=== PATIENT | female | born 1985 | race Caucasian/White ===

== ENCOUNTER 2016-11-01 15:17 | Emergency (ER) | payer MEDICAID, OTHER ==
[2016-11-01] MEDS ORDERED: KETOROLAC TROMETHAMINE 60 MG/2 ML VIAL IM ONE ×2 (16:17→16:37)
[2016-11-01 16:30] LABS: Hematocrit 38.5 % (37.0-47.0); Hemoglobin 12.7 gm/dL (12.5-16.0); Mean Cell Volume 86.5 fl (78-100); Mean Corpuscular Hemoglobin 28.5 pg (27-31); Mean Platelet Volume 10.5 fl (6.0-9.5); Neutrophil # 5.7 K/mm3 (1.3-6.0); Neutrophil % 65.3 % (42-75.0); Platelet Count 310 K/mm3 (150-450); Red Blood Count 4.45 M/mm3 (4.2-5.4); Red Cell Distribution Width 12.7 % (11.5-14.0); White Blood Count 8.7 K/mm3 (4.0-10.5)
[2016-11-01 16:44] LABS: Albumin * 3.6 gm/dl (3.4-5.0); Anion Gap 11.5 mmol/L (6.8-13.8); BUN/Creatinine Ratio 14.7 (9.0-21.6); Bilirubin, Total 0.3 mg/dL (0.0-1.1); CRP 2.3 mg/dL (0.0-0.9); Ca. Corrected For Albumin 9.1 mg/dL (8.4-10.2); Calcium * 9.1 mg/dL (7.9-10.9); Carbon Dioxide 30.5 mmol/L (24-32.6)
[2016-11-01 16:56] LABS: Urine Bilirubin Negative (NEGATIVE); Urine Blood Negative /ul (NEGATIVE); Urine Ketone Negative (NEGATIVE); Urine Nitrite Negative (NEGATIVE); Urine Protein Negative (NEGATIVE); Urine Specific Gravity 1.025 SP.GR. (1.005-1.010); Urine Urobilinogen Normal (NORMAL); Urine pH 6.5 pH (5.0-7.0)
--- NOTE | 2016-11-01 16:56 | ERNOTE ---
ER Female HPI Date of Service: 11/01/16 Stated Complaint: OVARIAN CYSTS Presenting Symptoms: pelvic pain Time Seen by Provider: 11/01/16 16:08 Source: patient, RN notes reviewed Exam Limitations: no limitations Immunizations: IMMUNIZATION HX Immunizations Up to Date Yes History of Influenza Vaccine No Hx Pneumococcal Vaccination No Allergies/Adverse Reactions: Allergies acetaminophen [From Vicodin] Allergy (Intermediate, Verified 11/01/16 15:34) itchy codeine [Codeine] Allergy (Verified 11/01/16 15:34) hydrocodone bitartrate [From Vicodin] Allergy (Verified 11/01/16 15:34) Sulfa (Sulfonamide Antibiotics) [Sulfa(Sulfonamide Antibiotics)] Allergy ( Verified 11/01/16 15:34) Home Medications: HOME MEDICATIONS HYDROmorphone HCL [Dilaudid] 2 mg PO Q6H PRN #12 tablet 11/01/16 [Last Taken Unknown] Ibuprofen [Motrin] 600 mg PO Q6H PRN #40 tab 11/01/16 [Last Taken Unknown] - History of Present Illness Narrative: 31 y/o female ambulatory to ED with left sided pelvic pain that began 4 days ago. She has had ovarian cysts in the past and reports that the pain is similar. She has been taking ibuprofen for pain without improvement. Her pain is worse with urination and defecation. She has had nausea but no vomiting or diarrhea. She denies fevers. Her LMP was 10/09/16. She has been on hormonal contraceptives in the past and tolerated them poorly. Timing: Present: getting worse Quality: Present: aching Onset Location: Present: LLQ, groin Radiation: Present: left flank Activities at Onset: Present: none Prior Abdominal Problems: Present: similar symptoms Sexual [place] History: Present: single partner Associated Symptoms: Present: nausea, abdominal pain, urinary frequency, low back pain. Absent: fever/chills, diaphoresis, vomiting Prior Treatment: Absent: recently seen, currently on antibiotics Review of Systems - Review of Systems Constitutional: Absent: recent illness, fever, chills EYE: Present: no symptoms reported ENT: Present: no symptoms reported Respiratory: Present: no symptoms reported Cardiology: Present: no symptoms reported Gastrointestinal/Abdominal: Absent: nausea, vomiting, diarrhea, constipation, eating less, drinking less Genitourinary: Present: frequency, pain. Absent: dysuria, hematuria, discharge Musculoskeletal: Present: back pain. Absent: neck pain Skin: Absent: rash, lesions Neurological: Absent: headache, dizziness/light-headedness Endocrine: Present: no symptoms reported Hematologic/Lymphatic: Present: no symptoms reported Psych: Present: no symptoms reported - Patient's Past Medical History Patient History - Medical: Other - Ovarian cysts Patient History - Cardiac/Respiratory: No pertinent hx Patient History - Cancer: No Hx of Cancer Patient History - Surgical Procedures: Appendectomy LMP (Calendar): 10/09/16 - Social History Living Situations: home Smoking Status: Never smoker Alcohol Use: rarely Drug Use: none Physical Exam - Physical Exam General Appearance: Present: wd/wn, alert, obese, other - appears uncomfortable Neck: Present: normal inspection, nontender, supple, full range of motion Respiratory: Present: no respiratory distress, normal breath sounds, no accessory muscle use, lungs clear Cardiovascular/Chest: Present: regular rate, rhythm, no murmur, normal peripheral pulses Gastrointestinal/Abdominal: Present: normal bowel sounds, soft, tenderness - LLQ /groin, distended - obese. Absent: rebound, mass Back Exam: Present: normal inspection, no CVA tenderness Neurological Exam: Present: alert, oriented, normal mood/affect Skin Exam: Present: normal color, warm/dry ED Progress - Results and Orders Patient's Lab Results:: I have reviewed the patient's lab results. - Vital Signs Patient's Vital Signs:: I have reviewed the patient's vital signs. Vital Signs: Vital Signs 11/01/16 15:27 Temperature 36.2 C L Pulse Rate 94 Respiratory 16 Rate Blood Pressure 166/109 O2 Sat by Pulse 97 Oximetry - CT/Ultrasound CT/Ultrasound Narrative: Pelvic US shows a complex hemorrhagic left ovarian cyst, otherwise normal exam - Progress/Reassessment Chief Complaint: Genitourinary Problem Progress:: Improved Plan - Plan Plan: Discussed lab and US results. [facility] Patient is tearful, states she is tired of being in pain. Declined pain medication aside from Toradol while in dept. No improvement after injection. States that Dilaudid is the only pain medication she has tolerated in the past and only take as HS. Rx given. Departure Clinical Impression: Ovarian cyst Qualifiers: Laterality: left Qualified Code(s): N83.202 - Unspecified ovarian cyst, left side - Departure Disposition: Home Follow Up Needed Condition: Good Instructions: Ovarian Cyst, [id number], Form - Excuse from Work, School, or Physical Activity Additional Instructions: See Dr. Salas as scheduled Continue ibuprofen every 6 hours Return for worsening symptoms Referrals: Nani Salas DO [Primary Care Provider] - Prescriptions: HYDROmorphone HCL [Dilaudid] 2 mg PO Q6H PRN #12 tablet PRN Reason: Pain Ibuprofen [Motrin] 600 mg PO Q6H PRN #40 tab PRN Reason: Pain
[2016-11-01 17:05] LABS: Urine Appearance Clear; Urine Bacteria TRACE; Urine Color Yellow; Urine RBC None Seen /hpf (0-5); Urine WBC None Seen /hpf (0-5)
[2016-11-01 19:25] VITALS: BP 150/92
== END 2016-11-01 19:24 | disposition home or self-care (01) ==
LOC: ER 15:17
DX: N83.202 Unspecified ovarian cyst, left side (principal)

== ENCOUNTER 2017-05-09 21:06 | Emergency (ER) | payer OTHER ==
[2017-05-09] MEDS ORDERED: METHYLPREDNISOLONE ACETATE 80 MG/ML VIAL IM ONE (21:32)
[2017-05-09] MEDS ORDERED: DEXAMETHASONE SOD PHOSPHATE 10 MG/ML VIAL IM ONE (21:32)
[2017-05-09] MEDS ORDERED: DEXAMETHASONE SOD PHOSPHATE 10 MG/ML VIAL ONE (21:33)
[2017-05-09] MEDS ORDERED: METHYLPREDNISOLONE ACETATE 80 MG/ML VIAL ONE (21:33)
--- NOTE | 2017-05-09 21:45 | ERNOTE ---
Lower Extremity HPI - General Lower Extremities Pain: foot: left Time Seen by Provider: 05/09/17 21:18 Source: patient Exam Limitations: no limitations - Immun/Allergies/Home Medications Immunizations: IMMUNIZATION HX Immunizations Up to Date Yes History of Influenza Vaccine No Hx Pneumococcal Vaccination No Allergies/Adverse Reactions: Allergies Allergy/AdvReac Type Severity Reaction Status Date / Time acetaminophen [From Vicodin] Allergy Intermediate itchy Verified 11/01/16 15:34 codeine [Codeine] Allergy Verified 11/01/16 15:34 hydrocodone bitartrate Allergy Verified 11/01/16 15:34 [From Vicodin] Sulfa (Sulfonamide Allergy Verified 11/01/16 15:34 Antibiotics) [Sulfa(Sulfonamide Antibiotics)] Home Medications: HOME MEDICATIONS Ibuprofen [Motrin] 600 mg PO Q6H PRN #40 tab 11/01/16 [Last Taken Unknown] Methylprednisolone [Medrol Dosepak] 4 mg PO DAILY #21 tab.ds.pk 05/09/17 [Last Taken Unknown] - History of Present Illness Narrative: For the past week the patient has had progressive foot pain. Started laterally at the edge of the heel. now involves her ankle and her foot. Now has swelling in the ankle and somewhat up the leg. Occurred: last week Method of Injury: Reports: unknown Modifying Factors - (Improves): Reports: pain medication - somewhat Modifying Factors - (Worsens): Reports: movement Review of Systems - Review of Systems Constitutional: Absent: recent illness EYE: Present: no symptoms reported Respiratory: Absent: shortness of breath Cardiology: Present: edema - around left ankle and foot Musculoskeletal: Present: See HPI Skin: Absent: rash, change in color Neurological: Absent: numbness, tingling - Patient's Past Medical History Patient History - Medical: Migraines, Other Patient History - Cardiac/Respiratory: No pertinent hx Patient History - Cancer: No Hx of Cancer Patient History - Surgical Procedures: Appendectomy Patient History - Other: None LMP (females 10-50): 1 month LMP (Calendar): 10/09/16 - Social History Living Situations: significant other Abuse History: No History of abuse Psych History: No pertinent hx Smoking Status: Never smoker Do you dip or chew tobacco: No Alcohol Use: rarely Drug Use: none - Immunizations Immunizations Up to Date: Yes Hx Pneumococcal Vaccination: No History of Influenza Vaccine: No Physical Exam - Physical Exam General Appearance: Present: wd/wn, alert, no apparent distress Head Exam: Present: normal inspection Neck: Present: normal inspection, full range of motion Respiratory: Present: no respiratory distress, no accessory muscle use Extremity Exam: Present: pedal edema - left. Tenderness, other - tender along the peroneal tendon left foot. Absent: calf tenderness - nor evidence of DVT, bony tenderness, joint redness Neurological Exam: Present: alert, oriented, normal mood/affect Skin Exam: Present: normal color, warm/dry ED Progress - Vital Signs Vital Signs: Vital Signs 05/09/17 21:09 Temperature 36.2 C L Pulse Rate 90 Respiratory 16 Rate Blood Pressure 162/77 O2 Sat by Pulse 99 Oximetry - Progress/Reassessment Chief Complaint: Lower Extremity Pain/ Injury Departure Clinical Impression: Peroneal tendinitis of left lower extremity - Departure Disposition: Home self-care Condition: Good Instructions: Tendinitis, [id number] Additional Instructions: keep LAUREN wrap on for 2 weeks then as needed after that. Start the oral prescription on morning. See your regular doctor if not improving Referrals: Sameer Penaloza MD [Primary Care Provider] - Prescriptions: Methylprednisolone [Medrol Dosepak] 4 mg PO DAILY #21 tab.ds.pk
[2017-05-09 22:15] VITALS: BP 124/84
== END 2017-05-09 22:13 | disposition home or self-care (01) ==
LOC: ER 21:06
DX: M76.72 Peroneal tendinitis, left leg (principal)

== ENCOUNTER 2017-05-27 16:20 | Emergency (ER) | payer OTHER ==
--- NOTE | 2017-05-27 17:09 | ERNOTE ---
Lower Extremity HPI - Narrative Date of Service: 05/27/17 - General Lower Extremities Pain: heel: left Time Seen by Provider: 05/27/17 17:00 Source: patient Exam Limitations: no limitations - Immun/Allergies/Home Medications Immunizations: IMMUNIZATION HX Immunizations Up to Date Yes History of Influenza Vaccine Yes Hx Pneumococcal Vaccination Yes Allergies/Adverse Reactions: Allergies Allergy/AdvReac Type Severity Reaction Status Date / Time acetaminophen [From Vicodin] Allergy Intermediate itchy Verified 05/27/17 16:47 codeine [Codeine] Allergy Verified 05/27/17 16:47 hydrocodone bitartrate Allergy Verified 05/27/17 16:47 [From Vicodin] Sulfa (Sulfonamide Allergy Verified 05/27/17 16:47 Antibiotics) [Sulfa(Sulfonamide Antibiotics)] Home Medications: HOME MEDICATIONS Ibuprofen [Motrin] 600 mg PO Q6H PRN #40 tab 11/01/16 [Last Taken Unknown] - History of Present Illness Narrative: 31 yo WF with one week of left heel pain. Developed sudden heel pain and seen in ED with Diagnosis of tendonitis. She kept off it for 24 hours but has been working most of day on her feet. Has had progressive swelling and pain of heel. Now very tender to dorsiflexion. No skin changes. Review of Systems - Review of Systems Musculoskeletal: Present: See HPI All Other Systems: All systems neg except as marked - Patient's Past Medical History Patient History - Medical: Migraines, Other Patient History - Cardiac/Respiratory: No pertinent hx Patient History - Cancer: No Hx of Cancer Patient History - Surgical Procedures: Appendectomy Patient History - Other: None LMP (females 10-50): 1 month LMP (Calendar): 10/09/16 - Social History Living Situations: home Abuse History: No History of abuse Psych History: No pertinent hx Smoking Status: Former smoker Alcohol Use: rarely Drug Use: none - Immunizations Immunizations Up to Date: Yes Hx Pneumococcal Vaccination: Yes History of Influenza Vaccine: Yes Physical Exam - Physical Exam General Appearance: Present: wd/wn, alert, no apparent distress, obese Head Exam: Present: normal inspection Eye Exam: PERRL: bilateral, EOMI: bilateral Respiratory: Present: no respiratory distress, normal breath sounds Cardiovascular/Chest: Present: regular rate, rhythm, no murmur Extremity Exam: Present: other - left ankle swelling with heel tenderness on palpation. Intact bilateral pulses. No erythemia, ulcers Neurological Exam: Present: no motor/sensory deficits Skin Exam: Present: normal color, warm/dry ED Progress - Vital Signs Patient's Vital Signs:: I have reviewed the patient's vital signs. Vital Signs: Vital Signs 05/27/17 16:39 Temperature 36.5 C Pulse Rate 85 Respiratory 16 Rate Blood Pressure 158/107 O2 Sat by Pulse 99 Oximetry - X-Ray X-Ray #1 X-Ray: foot - No apparent fx - Progress/Reassessment Chief Complaint: Lower Extremity Pain/ Injury Plan - Plan Plan: Recommended ibuprofen 600 mg alternating every 3 hours with tylenol 975mg Elevation and rest for minimum of 72 hours Walking boot Warm compress Follow up with PCP Departure Clinical Impression: Tendonitis, Achilles, left - Departure Disposition: Home self-care Condition: Fair Instructions: Tendinitis, [id number] Additional Instructions: Use ibuprofen 600 mg alternating with tylenol 975 mg every 3 hours Elevation Limit weight bearing Warm compress Follow up with PCP Referrals: Sameer Penaloza MD [Primary Care Provider] -
[2017-05-27 19:53] VITALS: BP 148/82
== END 2017-05-27 19:52 | disposition home or self-care (01) ==
LOC: ER 16:20
PROC: 2W3TX1Z Immobilization of Left Foot using Splint (ICD-10-PCS; principal; 2017-05-27)
DX: M76.62 Achilles tendinitis, left leg (principal)

== ENCOUNTER 2019-07-16 21:50 | Inpatient (IN) ==
--- NOTE | 2019-07-16 22:42 | ERNOTE ---
Abdominal HPI - General Chief Complaint: Abdominal Pain Time Seen by Provider: 07/16/19 22:19 Source: patient Exam Limitations: no limitations - Immun/Allergies/Home Medications Immunizatons: IMMUNIZATION HX Immunizations Up to Date Yes History of Influenza Vaccine Yes Hx Pneumococcal Vaccination Yes Allergies/Adverse Reactions: Allergies hydrocodone bitartrate [From Vicodin] Allergy (Severe, Verified 07/17/19 03:01) itchy, codeine [Codeine] Allergy (Intermediate, Verified 07/17/19 03:01) unknown Sulfa (Sulfonamide Antibiotics) [Sulfa(Sulfonamide Antibiotics)] Allergy (Intermediate, Verified 07/17/19 03:01) unknown Home Medications: HOME MEDICATIONS Ibuprofen [Motrin] 600 mg PO Q6H PRN #40 tab 11/01/16 [Last Taken Unknown] Ethinyl Estradiol/Drospirenone [Drospirenone-Ee 3-0.03 mg Tab] 1 ea PO 07/17/19 [Last Taken 2 Days Ago ~07/15/19] - History of Present Illness Narrative: Patient states she has been having diarrhea abdominal pain for approximately 6 days. She thought it was getting better over the weekend and then worsened again yesterday and today. He has had intractable nausea and vomiting for at least 2 days. She was seen at [facility] earlier today they did a CT scan and lab work and were going to admit her overnight for intractable vomiting and intractable abdominal pain but since they did not have ultrasound she did not want to stay there because she is concerned that it could have something to do with her PCOS. Timing: getting worse, other - colicky Quality: severe, cramping, sharpness Modifying Factors - (Improves): Present: lying down Modifying Factors - (Worsens): Present: eating, movement Associated Symptoms: Present: back pain, diarrhea-mucous, nausea, vomiting Prior Treatment: Present: recently seen, treated by physician Review of Systems - Review of Systems Constitutional: Present: chills, fatigue Respiratory: Absent: shortness of breath Cardiology: Absent: chest pain Gastrointestinal/Abdominal: Present: See HPI, nausea, vomiting, diarrhea, abdominal pain, eating less, drinking less Genitourinary: Present: decreased urinary output Musculoskeletal: Present: back pain Skin: Absent: rash Neurological: Present: headache, dizziness/light-headedness Endocrine: Present: excessive sweating Medical History (Updated 07/17/19 @ 02:30 by Jose Manuel Epperson DO) Migraine (Chronic) Onset Date: Unknown Abnormal Pap smear of cervix Onset Date: ~2008 Ovarian cyst Onset Date: Unknown Surgical History: Surgical History (Updated 09/15/18 @ 14:13 by Dominga Pennington CMA) History of cryosurgery Onset Date: ~2008 Hx of appendectomy Onset Date: ~2007 [place] teeth extracted Onset Date: Unknown Family History: Family History (Updated 09/15/18 @ 14:15 by Dominga Peninngton CMA) Mother Migraine Father History of back problems Grandfather , maternal Cancer Grandmother , maternal Cancer Grandmother , paternal Cancer Grandfather , paternal Cancer lung Social History: (Last Reviewed 07/16/19 @ 22:40 by Jose Manuel Epperson DO) Social History: Marital status: Single current occupational status: employed 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 Highest education level completed: some college, no degree Service: No Tobacco: Smoking Status: Former smoker Alcohol: alcohol intake: current alcohol intake frequency: holiday/special occasion Substance Use: substance use type: does not use Dietary Habits: caffeine: Yes Exercise: Physical activity type: none Physical Exam - Physical Exam General Appearance: Present: wd/wn, alert, moderate distress Head Exam: Present: normal inspection, no evidence of injury Ears, Nose, Throat: Present: dry mucous membranes Neck: Present: normal inspection, nontender Respiratory: Present: no respiratory distress, no accessory muscle use Gastrointestinal/Abdominal: Present: tenderness - Mostly lower and right lower quadrants, abnormal bowel sounds - Hyperactive on the left hypoactive on the right, guarding, rebound Extremity Exam: Present: normal inspection, normal range of motion, no edema Neurological Exam: Present: alert, oriented, no motor/sensory deficits Skin Exam: Present: normal color, warm/dry Progress - Results and Orders Patient's Lab Results:: I have reviewed the patient's lab results. Results and Orders: Lab results from [facility] show urinalysis negative. CBC essentially within normal limits. CMP within normal limits. Amylase lipase within normal limits. Lactic acid within normal limits. And serum negative. - Vital Signs Patient's Vital Signs:: I have reviewed the patient's vital signs. Vital Signs: Vital Signs 07/16/19 21:59 Temperature 36.8 C Pulse Rate 101 H Respiratory Rate 18 Blood Pressure 152/95 H O2 Sat by Pulse Oximetry 99 - CT/Ultrasound CT/Ultrasound Narrative: CT abdomen pelvis done at [facility] shows: no acute abnormality identified to account for patient's symptoms. Heterogeneous appearance of the cervix relation with findings on recent pelvic exam suggested. Likely a right uterine fibroid Bilateral L5 pars defects - Progress/Reassessment Chief Complaint: Abdominal Pain Progress:: Improved - pt states dilaudid took the edge off when morphine did not touch it. Progress Note-Subjective: 07/17/19 02:[address] Linda he agrees with observation admit for intractable nausea /vomiting and intractable abdominal pain. Departure Clinical Impression: Intractable abdominal pain, Intractable vomiting with nausea - Departure Disposition: Still a patient Condition: Fair
[2019-07-16] MEDS ORDERED: MORPHINE SULFATE 2 MG/ML DISP.SYRIN IV ONE (23:14)
[2019-07-16] MEDS ORDERED: ONDANSETRON HCL/PF 2 MG/ML VIAL IV ONE (23:31)
[2019-07-17 01:13] LABS: Urine Bilirubin Negative (NEGATIVE); Urine Blood Negative /ul (NEGATIVE); Urine Ketone Negative (NEGATIVE); Urine Nitrite Negative (NEGATIVE); Urine Protein Negative (NEGATIVE); Urine Urobilinogen Normal (NORMAL)
[2019-07-17 01:28] LABS: Urine Appearance Clear (CLEAR); Urine Bacteria TRACE; Urine Color Yellow; Urine RBC None Seen /hpf (0-5); Urine WBC None Seen /hpf (0-5)
[2019-07-17] MEDS ORDERED: HYDROmorphone HCL 1 MG/ML DISP.SYRIN IV ONE (01:44)
[2019-07-17] MEDS ORDERED: PROCHLORPERAZINE EDISYLATE 5 MG/ML VIAL IV PRN (02:38)
[2019-07-17] MEDS ORDERED: NORMAL SALINE 1,000 ML IV PRN (02:38)
[2019-07-17] MEDS: HYDROmorphone HCL 1 MG/ML DISP.SYRIN IV PRN ×7 (04:39→22:30)
[2019-07-17] MEDS ORDERED: METHYLPREDNISOLONE SOD SUCC/PF 40 MG/ML VIAL IV ONE (07:22)
--- NOTE | 2019-07-17 07:30 | HP ---
Chief Complaint - Chief Complaint Date of Service: 07/17/19 Time of Service: 07:23 Chief Complaint: Abdominal pain, with N/V and diarrhea History of Present Illness: Pt. is 33yo WF who complains of severe abdominal pain and bloating, diarrhea w ith nausea and vomiting. She recently traveled to [place], but was in good health at that time and denies exposure to raw foods or ill contacts. She did fall a week ago injuring her back for which she has been taking ibuprofen and was recently diagnosed with PCOS and started on alie BCP, but states that her sx began the day she first took both these meds. She denies assoc. sx's of F/C, bloody stoo ls or hemetemesis. She has had heartburn and indigestion. States the abdominal pain and bloating does wake her up at night. She was in the [facility] ER for sx's and tests were overall read (report from ERP note) as normal/negative to explain sx's (had a fibroid - but wouldn't explain diarrhea). There is no IBD in the family. She was admitted for pain control, IVF and for further evaluation of her the cause of her sx's. Medical History (Updated 07/17/19 @ 07:30 by Sameer Penaloza MD) Migraine (Chronic) Onset Date: Unknown Abnormal Pap smear of cervix Onset Date: ~2008 Ovarian cyst Onset Date: Unknown Surgical History: Surgical History (Updated 07/17/19 @ 07:30 by Sameer Penaloza MD) History of cryosurgery Onset Date: ~2008 Hx of appendectomy Onset Date: ~2007 [place] teeth extracted Onset Date: Unknown Family History: Family History (Updated 09/15/18 @ 14:15 by Dominga Pennington [facility]) Mother Migraine Father History of back problems Grandfather , maternal Cancer Grandmother , maternal Cancer Grandmother , paternal Cancer Grandfather , paternal Cancer lung Social History: (Last Reviewed 07/17/19 @ 03:00 by Sumanth Fox RN) Social History: Marital status: Single current occupational status: employed 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 Absent: Chills, Fever EENTM: Present: No Symptoms Reported Respiratory: Present: No Symptoms Reported Cardiac: Present: No Symptoms Reported Abdominal: Present: Nausea, Vomiting, Abdominal Pain. Absent: Hematemesis, Constipation, Melena, Bright blood from rectum Genitourinary: Present: No Symptoms Reported Musculoskeletal: Present: Back Pain Neurological: Present: No Symptoms Reported Skin: Present: No Symptoms Reported Endocrine: Present: No Symptoms Reported Immunizations: IMMUNIZATION HX Immunizations Up to Date Yes History of Influenza Vaccine Yes Hx Pneumococcal Vaccination Yes Allergies/Adverse Reactions: Allergies Allergy/AdvReac Type Severity Reaction Status Date / Time hydrocodone bitartrate Allergy Severe itchy, Verified 07/17/19 03:01 [From Vicodin] codeine [Codeine] Allergy Intermediate unknown Verified 07/17/19 03:01 Sulfa (Sulfonamide Allergy Intermediate unknown Verified 07/17/19 03:01 Antibiotics) [Sulfa(Sulfonamide Antibiotics)] Home Medications: HOME MEDICATIONS Ibuprofen [Motrin] 600 mg PO Q6H PRN #40 tab 11/01/16 [Last Taken Unknown] Ethinyl Estradiol/Drospirenone [Drospirenone-Ee 3-0.03 mg Tab] 1 ea PO 07/17/19 [Last Taken 2 Days Ago ~07/15/19] Exam - Exam Vital Signs: Vital Signs - Last Taken Temp 36.8 C 07/17/19 03:06 Pulse 82 07/17/19 03:06 Resp 20 07/17/19 03:06 BP 124/78 07/17/19 03:06 Pulse Ox 98 07/17/19 03:06 Constitutional: Present: Alert, Oriented x3, Moderate distress, Morbidly obese ENT Exam: Present: hearing grossly normal Eye Exam: bilateral eye: normal inspection, PERRL, EOMI Neck: Present: supple Respiratory: Present: lungs clear, normal breath sounds, no respiratory distress, no accessory muscle use Cardiovascular/Chest: Present: regular rate, rhythm Abdomen: Present: obese, tender - diffusely, but worse in ALLIE region, guarding, distended - abdomen very distended and tympanitic to percusssion, hypoactive. 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 (1.005-1.010) 07/17/19 01:20 Negative mg/dL (NEGATIVE) 07/17/19 01:20 Negative mg/dL (NEGATIVE) 07/17/19 01:20 Negative mg/dL (NEGATIVE) 07/17/19 01:20 Negative /ul (NEGATIVE) 07/17/19 01:20 Negative (NEGATIVE) 07/17/19 01:20 Negative mg/dl (NEGATIVE) 07/17/19 01:20 Normal EU/dl (NORMAL) 07/17/19 01:20 Ur Leukocyte Esterase Negative /ul (NEGATIVE) 07/17/19 01:20 None seen /hpf (0-5) 07/17/19 01:20 None seen /hpf (0-5) 07/17/19 01:20 Ur Epithelial Cells 0-5 /hpf (0-5) 07/17/19 01:20 Trace (NONE) 07/17/19 01:20 No culture indicated 07/17/19 01:20 Assessment/Plan - Assessment/Plan (1) Intractable abdominal pain Assessment: concerns are for possible peptic ulcer given her taking ibuprofen for significant back pain from fall and her most significant findings are ALLIE, but still given her generalized abdominal distension, a colitis - possibly infectious, would be possible. will do a dose of IV steroids for colitis (even though reported CT in [place] did not show anything, she is tender diffusely and bloated). Will start po Protonix for gastric coverage and try to get stool for norovirus and c. diff (given recent travel to [place], doubt other possible causes). Problem: Acute (2) Intractable vomiting with nausea Assessment: appears to be improved, but would correspond to both a colitis and/or PUD. will do protonix, prn anti-emetics. continue her NPO except for sips of water for now. will change her fluids to D5 as she is reporting feeling weak and dizzy when standing, which could be sugar issue or dehydration or just from the pain meds. Problem: Acute (3) Discharge planning issues Assessment: anticipate patient being here a minimum of one midnight as we sort out the cause of her symptoms and hopefully improve them and control them on orals with her being back to at least a liquid diet prior to discharge. Problem: Acute
[2019-07-17] MEDS: DEXTROSE 5%-0.5 NORMAL SALINE 1,000 ML IV PRN ×3 (07:54→22:41)
[2019-07-17] MEDS ORDERED: VANCOMYCIN HCL 50 MG/ML BTL PO SCH (13:30)
--- NOTE | 2019-07-17 13:33 | PN ---
Progess Note - Interim Date: 07/17/19 Time: 13:29 Narrative: 07/17/19 13:29 Pt. states still terrible pain, though felt like the IV steroids helped some. Had stool earlier, though just a small amount. 07/17/19 13:29 PE: Gen: Distressed Abd: Distended, tympanic, hypoactive, diffusely tender A/P: Given diarrhea, abdominal pain and findings on exam c/w colitis with concerns for C. 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 will do scheduled IV solumedrol for up to 36hrs to see if we can't improve her sx's. explained to pt. and family that we will look at transition to orals tomorrow if pain is still significant, as well as consider oral steroids and continuation of abx.
[2019-07-17] MEDS: METHYLPREDNISOLONE SOD SUCC/PF 40 MG/ML VIAL IV SCH ×2 (14:13→19:04)
[2019-07-17 16:30] LABS: Albumin * 3.2 gm/dl (3.4-5.0); Anion Gap 11.1 mmol/L (6.8-13.8); BUN/Creatinine Ratio 7.8 (9.0-21.6); Bilirubin, Total 0.3 mg/dL (0.0-1.1); Ca. Corrected For Albumin 8.7 mg/dL (8.4-10.2); Calcium * 8.4 mg/dL (7.9-10.9); Carbon Dioxide 26.9 mmol/L (24-32.6); Total Protein 7.7 gm/dL (6.2-8.2)
[2019-07-17] MEDS: PANTOPRAZOLE SODIUM 40 MG TABLET.EC PO SCH (20:35)
[2019-07-18] MEDS: HYDROmorphone HCL 1 MG/ML DISP.SYRIN IV PRN ×6 (00:45→22:43)
[2019-07-18] MEDS: METHYLPREDNISOLONE SOD SUCC/PF 40 MG/ML VIAL IV SCH ×2 (00:46→07:57)
[2019-07-18] MEDS: DEXTROSE 5%-0.5 NORMAL SALINE 1,000 ML IV PRN ×2 (05:22→16:26)
[2019-07-18] MEDS ORDERED: HYDROmorphone HCL 2 MG TABLET PO PRN (06:28)
[2019-07-18] MEDS ORDERED: ACETAMINOPHEN 325 MG TABLET PO PRN (06:29)
--- NOTE | 2019-07-18 06:48 | PN ---
Inés Note - Interim Date: 07/18/19 Time: 06:43 Narrative: 07/18/19 06:43 Pt. pain was better in the night, but patient states the pain is worse this am. she has not had a bm and is not passing flatus. She has had her appendix out in the past, otherwise denies any abdominal surgeries. Nursing states she complained of hemorrhoid pain this am. No vomiting or fevers. 07/18/19 06:44 PE: General: in mod distress, speech is not pressured. Lungs: CTA Heart: RRR Abdomen: Still distended, diffusely tender, no BS heard. some guarding, no Rebound tenderness. A/P: Abdominal pain: colitis - due to unknown etiology. ESR is elevated. Some concern for possible Bowel obstruction so will check abdominal xray. Will advance to clear liquids to see how she does with this in effort to discharge later today, but given how significant her sx are right now, may be inappropriate to do so. Will see what repeat labs show this am.
[2019-07-18 06:56] LABS: Hematocrit 34.6 % (37.0-47.0); Hemoglobin 11.3 gm/dL (12.5-16.0); Mean Corpuscular Hemoglobin 28.8 pg (27-31); Mean Corpuscular Hgb Conc 32.7 g/dl (32-36); Mean Platelet Volume 10.2 fl (8-12.5); Platelet Count 284 K/mm3 (150-450); Red Blood Count 3.93 M/mm3 (4.2-5.4); Red Cell Distribution Width 12.7 % (11.5-14.0); White Blood Count 8.7 K/mm3 (4.0-10.5)
[2019-07-18 07:09] LABS: Total Cells Counted 100
[2019-07-18 07:21] LABS: Eosinophil 1 % (0-3); Lymphocyte 11 % (20-51); Monocyte 1 % (0-9); Neutrophil 87 % (42-75); Neutrophil # 7.6 K/mm3 (1.3-6.0)
[2019-07-18 07:23] LABS: Platelet Estimate Normal (NORMAL); RBC Morphology Normal (NORMAL)
--- NOTE | 2019-07-18 07:25 | PN ---
Subjective - Date and Time Seen Date: 07/18/19 Time: 07:16 Subjective Narrative: Pt. complaining of increasing pain this am after having an OK night last pm. No flatus or BM in hours. No F/C or N/V. Pain meds keep pain at bay, but still hasn't been any better than a 03/19. Pt. complained to nursing about hemorrhoids and would like treatment for this. Objective Objective Narrative: ESR yesterday PM was 59 showing a great deal of inflammation. C. diff was negative. Pt. states she's had an appendectomy in the past. - Review of Systems Generalized/Overall Review: Reports: Malaise, Fatigue. Denies: Chills, Fever EENTM: Reports: No Symptoms Reported Respiratory: Reports: No Symptoms Reported Cardiac: Reports: No Symptoms Reported Abdominal: Reports: Nausea, Abdominal Pain. Denies: Vomiting, Hematemesis, Constipation, Diarrhea, Melena, Bright blood from rectum Genitourinary Symptoms: Reports: No Symptoms Reported Musculoskeletal Complaints: Reports: Back Pain Neurological: Reports: No Symptoms Reported Skin: Reports: No Symptoms Reported Endocrine: Reports: No Symptoms Reported - Vitals Vitals: Last Vital Signs Temp 36.3 C 07/18/19 06:53 Pulse 71 07/18/19 06:53 Resp 20 07/18/19 06:53 BP 128/81 07/18/19 06:53 Pulse Ox 97 07/18/19 06:53 - Abnormal Lab Findings Abnormal Lab Findings: Abnormal Lab Results 07/17/19 07/17/19 07/18/19 Range/Units 16:10 16:10 06:45 RBC 3.93 L (4.2-5.4) M/mm3 Hgb 11.3 L (12.5-16.0) gm/dL Hct 34.6 L (37.0-47.0) % ESR 59 H (0-15) mm/hr BUN/Creatinine Ratio 7.8 L (9.0-21.6) Random Glucose 139 H (70-110) mg/dL Albumin 3.2 L (3.4-5.0) gm/dl - Exam Constitutional: Present: Alert, Oriented x3, Cooperative, Moderate distress, Morbidly obese ENT Exam: Present: hearing grossly normal Neck: Present: supple Respiratory: Present: lungs clear, normal breath sounds, no respiratory distress, no accessory muscle use Cardiovascular/Chest: Present: regular rate, rhythm Abdomen: Present: no rebound tenderness, tender, guarding, no bowel sounds. 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 c. diff was negative. ESR was 59 showing significant inflammation. Will continue IV steroids, recheck ESR. Get abdominal xray due to no bowel sounds (could be ileus from pain meds, but this wouldn't be c/w the ESR of 59). Concern for bowel obstruction. may need to repeat CT of abdomen. Will check lipase. continue protonix. change to PO pain meds and do trial of clear liquids to see if we can't transition her home, but doubtful given the significant ESR finding. (2) Intractable vomiting with nausea Problem: Acute Narrative: resolved for now. will follow. (3) Discharge planning issues Problem: Acute Narrative: At this point, given the significance of her labs and PE findings, feel discharge at this time would be inappropriate and would have a high risk for morbidity if not mortality, not knowing exactly what is causing her sx's and the significant labs. Will continue current meds and do above mentioned tests, but unless there is improvement in her subjective sx, PE findings and labs, I don't see where she can be discharged home later today.
[2019-07-18] MEDS: PANTOPRAZOLE SODIUM 40 MG TABLET.EC PO SCH (07:57)
[2019-07-18] MEDS ORDERED: DIATRIZOATE MEGLUMINE, SODIUM 30 ML BTL PO ONE (09:59)
--- NOTE | 2019-07-18 10:00 | CONS ---
[facility] - General Date of Service: 07/18/19 Narrative: Large bowel obstruction Source: patient Exam Limitations: no limitations - History of Present Illness Initial Comments: Kellee is a pleasant 33-year-old female who developed abdominal pain approximately 8 days ago. She had abdominal pain with nausea and vomiting from Tuesday to Tuesday. She started to feel better on Tuesday. She had diarrhea from Tuesday to Tuesday. There was no blood in her diarrhea. She denies hematemesis. She was very nauseated and only ate crackers and a few sips of water during that time. She has never felt this way before. Her only abdominal surgery is an appendectomy. She complains of having difficulty taking a full breath she feels like there is pressure from her abdomen pushing on her chest. Timing/Duration: 1 week Severity: moderate Modifying Factors - (Worsens): Reports: eating, movement Modifying Factors - (Improves): Reports: medication Associated Symptoms: nausea, vomiting, shortness of breath, weakness Allergies/Adverse Reactions: Allergies hydrocodone bitartrate [From Vicodin] Allergy (Severe, Verified 07/17/19 03:01) itchy, codeine [Codeine] Allergy (Intermediate, Verified 07/17/19 03:01) unknown Sulfa (Sulfonamide Antibiotics) [Sulfa(Sulfonamide Antibiotics)] Allergy (Intermediate, Verified 07/17/19 03:01) unknown Home Medications: Home Medications Medication Instructions Recorded Last Taken Ibuprofen [Motrin] 600 mg PO Q6H PRN #40 tab 11/01/16 Unknown Ethinyl Estradiol/Drospirenone 1 ea PO 07/17/19 2 Days Ago [Drospirenone-Ee 3-0.03 mg Tab] ~07/15/19 Procedures Immobilization of Left Foot using Splint (05/27/17) Injection of steroid (03/09/15) Injection or infusion of other therapeutic or prophylactic substance (03/09/15) Laparoscopic appendectomy (12/25/08) Medications - Medications Current Medications: Current Medications Hydromorphone HCl (Dilaudid) 2 mg PO Q4H PRN PRN Reason: Severe Pain (pain scale 7-10) Stop: 08/17/19 06:29 Last Admin: 07/18/19 07:56 Dose: 2 mg Documented by: Dextrose/Sodium Chloride (Dextrose 5%-0.45%Ns) 1,000 mls @ 150 mls/hr IV .Q6H40M PRN PRN Reason: HYDRATION Last Admin: 07/18/19 05:22 Dose: 150 mls/hr Documented by: Methylprednisolone Sodium Succinate (Solu-Medrol) 80 mg IV Q6H [facility] Stop: 07/19/19 07:31 Last Admin: 07/18/19 07:57 Dose: 80 mg Documented by: Pantoprazole Sodium (Protonix) 40 mg PO BID@0700,2100 [facility] Stop: 08/16/19 21:01 Last Admin: 07/18/19 07:57 Dose: 40 mg Documented by: Review of Systems - Review of Systems Generalized/Overall Review: Present: Malaise EENTM: Present: No Symptoms Reported Respiratory: Present: Other - Difficulty taking a deep breath Cardiac: Present: No Symptoms Reported Abdominal: Present: Nausea, Vomiting, Diarrhea Genitourinary: Present: No Symptoms Reported Musculoskeletal: Present: No Symptoms Reported Neurological: Present: Weakness Skin: Present: No Symptoms Reported Endocrine: Present: No Symptoms Reported Physical Examination - Exam Vital Signs: Vital Signs - Last Taken Temp 36.3 C 07/18/19 08:37 Pulse 71 07/18/19 08:37 Resp 20 07/18/19 08:37 BP 128/81 07/18/19 08:37 Pulse Ox 97 07/18/19 08:37 O2 Oxygen Delivery Method Room Air Constitutional: Present: Alert, Oriented x3 ENT Exam: Present: hearing grossly normal Neck: Present: supple, trachea midline Breasts: Present: Exam deferred Respiratory: Present: lungs clear, normal breath sounds Cardiovascular/Chest: Present: regular rate, rhythm Abdomen: Present: soft, no rebound tenderness, obese, tender. 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 Appearance: Present: appropriate appearance Eye contact: Present: cooperative, good eye contact, normal speech Thoughts: Present: normal thought pattern - Results and Findings: Lab/Microbiology results last 24 hrs: Abnormal/Pending Laboratory Last 24 HRS 07/18/19 07/18/19 07/17/19 06:45 06:45 16:10 RBC 3.93 L Hgb 11.3 L Hct 34.6 L Neutrophils % (Manual) 87 H Lymphocytes % (Manual) 11 L Neutrophils # (Manual) 7.6 H Lymphocytes # (Manual) 1.0 L ESR 58 H BUN/Creatinine Ratio 7.8 L Random Glucose 139 H Albumin 3.2 L 07/17/19 16:10 RBC Hgb Hct Neutrophils % (Manual) Lymphocytes % (Manual) Neutrophils # (Manual) Lymphocytes # (Manual) ESR 59 H BUN/Creatinine Ratio Random Glucose Albumin - Assessments/Findings (1) Large bowel obstruction Problem: Acute (2) Intractable abdominal pain Problem: Acute Plan - Plan Plan: We will plan to repeat her CT scan as her abdominal x-ray now shows a bowel obstruction. We will do a CT of the abdomen and pelvis with p.o. and IV contrast. 1450-I reviewed her CT scan images. I started her on Cipro Flagyl for colitis. She will need an outpatient colonoscopy to evaluate further. 1515- Discussed the plan of starting antibiotics with patient. She voices understanding and agreement.
[2019-07-18] MEDS ORDERED: DIATRIZOATE MEGLUMINE, SODIUM 30 ML BTL ONE (10:13)
--- NOTE | 2019-07-18 10:16 | PN ---
Progess Note - Interim Date: 07/18/19 Time: 10:14 Narrative: 07/18/19 10:14 Abdominal xray shows concerns for large bowel obstruction. Consultation by GS, appreciate Dr. Latham's help in this case. Will make patient inpatient, NPO, switch to IV pain meds and protonix. continue IVF for now at current rate. CT per Dr. Latham.
[2019-07-18] MEDS: PANTOPRAZOLE SODIUM 40 MG in NORMAL SALINE 100 ML IV SCH (11:24)
[2019-07-18] MEDS: HYDROCORTISONE ACETATE 25 MG SUPP.RECT RC SCH (11:26)
[2019-07-18] MEDS: metroNIDAZOLE 500 MG TABLET PO SCH ×2 (15:30→22:34)
[2019-07-18] MEDS: CIPROFLOXACIN HCL 500 MG TABLET PO SCH ×2 (15:30→20:26)
[2019-07-19] MEDS: DEXTROSE 5%-0.5 NORMAL SALINE 1,000 ML IV PRN ×2 (00:27→09:56)
[2019-07-19] MEDS: HYDROmorphone HCL 1 MG/ML DISP.SYRIN IV PRN (03:58)
[2019-07-19] MEDS: HYDROCORTISONE ACETATE 25 MG SUPP.RECT RC SCH ×3 (04:47→22:05)
--- NOTE | 2019-07-19 07:15 | PN ---
Subjective - Date and Time Seen Date: 07/19/19 Time: 07:07 Subjective Narrative: Pain is still present and significant, though does admit it is slightly better. BM last PM, with flatus, which brought some relief. Stomach has been grumbling more. She is trying to move around more and trying to limit dilaudid use. Objective - Review of Systems Generalized/Overall Review: Reports: Weakness. Denies: Chills, Fever EENTM: Reports: No Symptoms Reported Respiratory: Reports: No Symptoms Reported Cardiac: Reports: No Symptoms Reported Abdominal: Reports: Nausea, Abdominal Pain, Diarrhea. Denies: Vomiting, Hematemesis, Constipation, Melena, Bright blood from rectum Genitourinary Symptoms: Reports: No Symptoms Reported Musculoskeletal Complaints: Reports: Back Pain Neurological: Reports: No Symptoms Reported Skin: Reports: No Symptoms Reported Endocrine: Reports: No Symptoms Reported - Vitals Vitals: Last Vital Signs Temp 36.5 C 07/19/19 06:38 Pulse 64 07/19/19 06:38 Resp 16 07/19/19 06:38 BP 101/60 07/19/19 06:38 Pulse Ox 98 07/19/19 06:38 - Abnormal Lab Findings Abnormal Lab Findings: Abnormal Lab Results 07/18/19 07/18/19 Range/Units 06:45 06:45 RBC 3.93 L (4.2-5.4) M/mm3 Hgb 11.3 L (12.5-16.0) gm/dL Hct 34.6 L (37.0-47.0) % Neutrophils % (Manual) 87 H (42-75) % Lymphocytes % (Manual) 11 L (20-51) % Neutrophils # (Manual) 7.6 H (1.3-6.0) K/mm3 Lymphocytes # (Manual) 1.0 L (1.5-3.5) k/mm3 ESR 58 H (0-15) mm/hr - Exam Constitutional: Present: Alert, Oriented x3, Cooperative, Mild distress, Obese ENT Exam: Present: hearing grossly normal Neck: Present: supple Respiratory: Present: no respiratory distress, no accessory muscle use Cardiovascular/Chest: Present: regular rate, rhythm Abdomen: Present: soft, obese, guarding, distended, hypoactive. 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 could be impacted stool. will recheck abdominal xray. consider enema - d/w pt. Have her move as much as possible. start her on liquid diet. continue abx to cover possible infectious - colitis etiology. will do toradol to limit use of dilaudid, but help with pain and inflammation. (2) Intractable abdominal pain Problem: Acute Narrative: pain is improved, but still not to goal of being able to go home. (3) Intractable vomiting with nausea Problem: Resolved (4) Discharge planning issues Problem: Acute Narrative: Pt. is improved, but definitely not able to go home yet. Anticipate her being here at least until tomorrow. would like to see bowels be more active, pain at around a 5/10 or less on oral meds and her tolerating PO liquids at the very least. Will continue current orders, with adding toradol to regimen to see if this won't help move things along. Consider enema. Plan was discussed in great detail with patient. They voiced understanding of the plan and agree with the plan.
[2019-07-19] MEDS: metroNIDAZOLE 500 MG TABLET PO SCH ×3 (08:12→22:05)
[2019-07-19] MEDS: KETOROLAC TROMETHAMINE 30 MG/ML VIAL IV SCH ×3 (08:15→20:48)
[2019-07-19] MEDS: CIPROFLOXACIN HCL 500 MG TABLET PO SCH ×2 (08:19→20:56)
--- NOTE | 2019-07-19 09:34 | PN ---
Dictated Progress Note - Date and Time Seen: Date: 07/19/19 Time: 09:32 - Progress Note Narrative: pt is feeling better. Had a BM yesterday. Still having abdominal pain, but improved. Vital Signs - Last Taken Temp 36.5 C 07/19/19 06:38 Pulse 64 07/19/19 06:38 Resp 16 07/19/19 06:38 BP 101/60 07/19/19 06:38 Pulse Ox 98 07/19/19 06:38 NAD non labored skin warm and dry abd obese, diffusely tender, no R/G Imp: abd pain AXR unchanged likely diverticulitis or colitis Plan: cont ABx will need outpt colonoscopy slowly advance diet as tolerated
[2019-07-19] MEDS: PANTOPRAZOLE SODIUM 40 MG in NORMAL SALINE 100 ML IV SCH (11:06)
[2019-07-20] MEDS: KETOROLAC TROMETHAMINE 30 MG/ML VIAL IV SCH ×3 (00:11→13:59)
[2019-07-20] MEDS: metroNIDAZOLE 500 MG TABLET PO SCH ×2 (06:55→14:00)
--- NOTE | 2019-07-20 06:56 | PN ---
Progess Note - Interim Date: 07/20/19 Time: 06:48 Narrative: 07/20/19 06:48 Had increased abdominal discomfort and some CP last PM. Still passing flatus and stomach sounds were active per patient this am. She still does not feel well. Pt's brother (age 28) was seen recently in [facility] for concerns for possible Crohn's, but stated colonoscopy and EGD were negative for this on bx. He has a SBO of unknown etiology. CP last night, EKG done which was NSR and no acute changes. Sx resolved on own. it was midline, substernal without radiation. Some blood on toilet paper this am, but has been complaining of hemorrhoids. PE: More distressed this am, though would still diving judge as mild-moderate. CTA seth, with RRR no murmur. Chest is NTTP Abdomen is more distended than last pm, tympanitic on percussion throughout, BS are hypoactive and high pitched this am. Abdomen is more firm, but not rigid and no distinct guarding except when palpated mid descending colon. A/P: Large bowel obstruction - appears slightly worse this am. Still passing stool and flatus, but exam worse than last pm. Will repeat abd. xray. Will discuss with Dr. Latham possible plan of action, including possible transfer for higher level of care/investigation vs continued watchful waiting. Will continue abx. Reconsider starting IV steroids. Will check ESR again this am, along with CMP to be sure no electrolyte issues. Definitely not ready for discharge.
[2019-07-20] MEDS ORDERED: PANTOPRAZOLE SODIUM 40 MG TABLET.EC PO SCH (07:00)
[2019-07-20 07:58] LABS: BUN/Creatinine Ratio 13.3 (9.0-21.6); Bilirubin, Total 0.3 mg/dL (0.0-1.1); Ca. Corrected For Albumin 8.1 mg/dL (8.4-10.2); Calcium * 7.6 mg/dL (7.9-10.9); Carbon Dioxide 27.2 mmol/L (24-32.6); Magnesium 1.9 mg/dL (1.2-2.8); Potassium 3.2 mmol/L (3.4-4.6); Total Protein 6.6 gm/dL (6.2-8.2)
--- NOTE | 2019-07-20 08:54 | PN ---
Subjective - Date and Time Seen Date: 07/20/19 Time: 08:41 Subjective Narrative: Had increased abdominal discomfort and some CP last PM. Still passing flatus and stomach sounds were active per patient this am. She still does not feel well. Pt's brother (age 28) was seen recently in [facility] for concerns for possible Crohn's, but stated colonoscopy and EGD were negative for this on bx. He has a SBO of unknown etiology. CP last night, EKG done which was NSR and no acute changes. Sx resolved on own. it was midline, substernal without radiation. Some blood on toilet paper this am, but has been complaining of hemorrhoids. Objective - Review of Systems Generalized/Overall Review: Reports: Weakness, Malaise. Denies: Chills, Fever EENTM: Reports: No Symptoms Reported Respiratory: Reports: No Symptoms Reported Cardiac: Reports: Chest Pain, Edema. Denies: Palpitations, Syncope Abdominal: Reports: Abdominal Pain, Bright blood from rectum. Denies: Nausea, Vomiting, Hematemesis, Melena Genitourinary Symptoms: Reports: No Symptoms Reported Musculoskeletal Complaints: Reports: Back Pain Neurological: Reports: No Symptoms Reported Skin: Reports: No Symptoms Reported Endocrine: Reports: No Symptoms Reported - Vitals Vitals: Last Vital Signs Temp 36.9 C 07/20/19 03:31 Pulse 73 07/20/19 03:31 Resp 14 07/20/19 03:31 BP 134/75 07/20/19 03:31 Pulse Ox 97 07/20/19 03:31 - Abnormal Lab Findings Abnormal Lab Findings: Abnormal Lab Results 07/20/19 07/20/19 Range/Units 07:36 07:36 ESR 39 H (0-15) mm/hr Potassium 3.2 L (3.4-4.6) mmol/L Calcium 7.6 L (7.9-10.9) mg/dL Calcium Adj for Albumin 8.1 L (8.4-10.2) mg/dL Albumin 3.0 L (3.4-5.0) gm/dl - Exam Constitutional: Present: Alert, Oriented x3, Cooperative, Mild distress, Obese ENT Exam: Present: hearing grossly normal Neck: Present: supple Respiratory: Present: lungs clear, no respiratory distress, no accessory muscle use Cardiovascular/Chest: Present: regular rate, rhythm, other - no chest wall tenderness to palpation, edema - seth LE, no cords or calf tenderness to palpation Abdomen: Present: soft, tender, guarding, distended, hypoactive. 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 Will continue with clear liquid diet and reassess throughout the day. Transition to all PO meds with hope of discharge later today or tomorrow. will discuss this plan more fully with patient over the lunch hour. continue to have her walk as much as possible. Etiology of obstruction colitis vs. diverticulitis, still uncertain, but agree with Dr. Latham that outpt colonoscopy is needed and pt. is aware of this. (2) Intractable abdominal pain Problem: Acute Narrative: pain is better, but still taking IV meds for this. (3) Intractable vomiting with nausea Problem: Resolved (4) Morbid obesity Problem: Acute Narrative: Pt. has BMI of 47, c/w morbid obesity. She has received dietary counselling from our waitstaff and has received information. She is currently doing a keto diet to loose weight. Will continue to encourage weight loss through diet and exercise. consider testing for SHRUTHI outpatient if indicated as this can also prevent weight loss. (5) Hematochezia Problem: Acute Narrative: believe this is most likely from hemorrhoids given the details of where the BRBPR is seen - on paper. Will follow for now. Will check H/H if persists or worsens. She is now off toradol and is continued on protonix, so believe risks from GI is low. (6) Hypokalemia Problem: Acute Narrative: most likely due to poor PO intake, diarrhea and IVF. Will replace with IV KCL and then add PO KCL to orders. Correcting this will be important to improve gut motility. Will recheck either later today or in the am, depending on when she might go home. (7) Discharge planning issues Problem: Acute Narrative: There is a chance she could go home later today, but in light of her many issues and still being on clear liquids and now with the low potassium, feel it may be best to keep her one more midnight, discharging tomorrow AM. Will assess throughout the day to see where things are and the possibility of her going home this pm.
[2019-07-20] MEDS: HYDROCORTISONE ACETATE 25 MG SUPP.RECT RC SCH (10:08)
[2019-07-20] MEDS: CIPROFLOXACIN HCL 500 MG TABLET PO SCH (10:10)
[2019-07-20] MEDS: POTASSIUM CHLORIDE IN WATER 100 ML IV SCH ×4 (10:15→13:59)
--- NOTE | 2019-07-20 10:37 | PN ---
Dictated Progress Note - Date and Time Seen: Date: 07/20/19 Time: 10:34 - Progress Note Narrative: Pt is slowly feeling better. Denies nausea vomiting. Had 4 small bowel movements. Does not have much of an appetite. Vital Signs - Last Taken Temp 36.4 C 07/20/19 06:00 Pulse 67 07/20/19 06:00 Resp 16 07/20/19 06:00 BP 148/78 H 07/20/19 06:00 Pulse Ox 100 07/20/19 06:00 Abnormal/Pending Laboratory Last 24 HRS 07/20/19 07/20/19 07:36 07:36 ESR 39 H Potassium 3.2 L Calcium 7.6 L Calcium Adj for Albumin 8.1 L Albumin 3.0 L Imp: Thickened colon resolving large bowel obstruction Plan: cont to advance diet replacing potassium cont abx outpt scope
[2019-07-20] MEDS ORDERED: HYDROmorphone HCL 2 MG TABLET PO PRN (11:31)
--- NOTE | 2019-07-20 17:03 | DS ---
(1) Large bowel obstruction Diagnosis(s): Improving at time of discharge. Still having pain, but moving stool and flatus, tolerating PO. Etiology still unknown, with cause thought to be colitis or diverticulitis or possible IBD. Pt. will be scheduled for colonoscopy in a month or so to further investigate etiology and determine long term care social worker prognosis and treatment. Problem: Acute (2) Intractable abdominal pain Diagnosis(s): Pain is in a tolerable range at time of discharge. Can take Ibuprofen prn, but will also do Rx for dilaudid prn. Problem: Acute (3) Intractable vomiting with nausea Problem: Resolved (4) Morbid obesity Diagnosis(s): Dietary consult was done for weight loss, which patient will work on once she is back to her baseline and is able to eat more variety of foods and exercise regularly. Problem: Acute (5) Hematochezia Problem: Acute (6) Hypokalemia Diagnosis(s): Pt. received IV KCL which should resolve her hypokalemia. No repeat labs done at this time. Will repeat K levels at f/u. D/w pt. drinking juices to help replenish K, especially orange juice. Other foods rich in potassium are also advised when she is eating more solids - like potato skins, bananas, mushrooms. Problem: Acute (7) Discharge planning issues Problem: Acute Date of Discharge:: 07/20/19 Description of Stay: see above for more details. D/w pt. and her dad and her expected time frame to normal. Issues with getting gas out of the colon - staying active, letting it out, low gas foods, etc. When to Return to clinic if symptoms worsen or do not improve. Meds to be taken and f/u tests needed. Plan was discussed in great detail with patient. They voiced understanding of the plan and agree to proceed and be compliant with the plan. Pt. did have some hemorrhoids during stay. She can continue to treat these with OTC treatment. She also had CP, which was most likely costochondral or gas. There were no EKG changes and had rapid resolution of her sx with belching, therefore most likely GI assoc. Procedures Performed: none Results and Findings: Lab Pending Results 07/17/19 01:20: Urine Color Yellow, Urine Appearance Clear, Urine pH 6.0, Ur Specific [place] 1.010, Urine Protein Negative, Urine Glucose (UA) Negative, Urine Ketones Negative, Urine Blood Negative, Urine Nitrate Negative, Urine Bilirubin Negative, Urine Urobilinogen Normal, Ur Leukocyte Esterase Negative, Urine RBC None seen, Urine WBC None seen, Ur Epithelial Cells 0-5, Urine Bacteria Trace, Urine Culture Comments No culture indicated 07/17/19 16:10: ESR 59 H 07/17/19 16:10: Sodium 137, Plasma Sodium 138, Potassium 4.0, Chloride 103, Carbon Dioxide 26.9, Anion Gap 11.1, BUN 5, Creatinine 0.64, Est GFR (Non-Af Amer) 114, BUN/Creatinine Ratio 7.8 L, Random Glucose 139 H, Calcium 8.4, Calcium Adj for Albumin 8.7, Total Bilirubin 0.3, AST 20, ALT 28, Alkaline Phosphatase 87, Total Protein 7.7, Albumin 3.2 L 07/17/19 : Stl C.difficile Tox A&B Negative 07/18/19 06:45: ESR 58 H 07/18/19 06:45: Lipase 83 07/18/19 06:45: WBC 8.7, RBC 3.93 L, Hgb 11.3 L, Hct 34.6 L, MCV 88.0, MCH 28.8, MCHC 32.7, RDW 12.7, Plt Count 284, MPV 10.2, Neutrophils % (Manual) 87 H, Lymphocytes % (Manual) 11 L, Monocytes % (Manual) 1, Eosinophils % (Manual) 1, Neutrophils # (Manual) 7.6 H, Lymphocytes # (Manual) 1.0 L, Monocytes # (Manual) 0.1, Eosinophils # (Manual) 0.1, Platelet Estimate Normal, RBC Morphology Normal 07/20/19 07:36: ESR 39 H 07/20/19 07:36: Sodium 139, Plasma Sodium 139, Potassium 3.2 L, Chloride 104, Carbon Dioxide 27.2, Anion Gap 11.0, BUN 11 D, Creatinine 0.83, Est GFR (Non-Af Amer) 84 D, BUN/Creatinine Ratio 13.3, Random Glucose 93 D, Calcium 7.6 L, Calcium Adj for Albumin 8.1 L, Magnesium 1.9, Total Bilirubin 0.3, AST 26, ALT 43, Alkaline Phosphatase 70, Total Protein 6.6, Albumin 3.0 L Discharge Location: Home Disposition: Home self-care Condition: Fair Discharge Activity: Activity as tolerated Discharge Diet: Low Fiber, Full Liquids - advance as tolerated Referrals: Sameer Penaloza MD [Primary Care Provider] - One Week Prescriptions (Any new or edited meds): Ciprofloxacin HCl [Cipro] 500 mg PO BID #14 tab HYDROmorphone HCL [Dilaudid] 2 mg PO Q4H PRN #42 tab PRN Reason: moderate severe pain metroNIDAZOLE [Flagyl] 500 mg PO Q8H #21 tab Pantoprazole Sodium [Protonix] 40 mg PO DAILY@0700 #30 tablet. Complete Home Medications List: Complete Home Medication List: Ibuprofen [Motrin] 600 mg PO Q6H PRN #40 tab 11/01/16 Ethinyl Estradiol/Drospirenone [Drospirenone-Ee 3-0.03 mg Tab] 1 ea PO 07/17/19 Ciprofloxacin HCl [Cipro] 500 mg PO BID #14 tab 07/20/19 HYDROmorphone HCL [Dilaudid] 2 mg PO Q4H PRN #42 tab 07/20/19 Pantoprazole Sodium [Protonix] 40 mg PO DAILY@0700 #30 tablet. 07/20/19 metroNIDAZOLE [Flagyl] 500 mg PO Q8H #21 tab 07/20/19
[2019-07-20 17:50] VITALS: BP 154/87
== END 2019-07-20 17:40 | disposition home or self-care (01) | DRG 389 ==
LOC: MS 21:50 → ER 21:50 → MS 07-17 02:50
PROVIDERS: ADMIT Family Medicine; ATTEND Family Medicine
DX: K92.1 Melena; E66.01 Morbid (severe) obesity due to excess calories; K56.600 Partial intestinal obstruction, unspecified as to cause; R16.2 Hepatomegaly with splenomegaly, not elsewhere classified; K52.9 Noninfective gastroenteritis and colitis, unspecified; E87.6 Hypokalemia; Z68.42 Body mass index [BMI] 45.0-49.9, adult; K57.32 Diverticulitis of large intestine without perforation or abscess without bleeding; R07.9 Chest pain, unspecified
CPT/HCPCS: 36415; 74019; 74020; 74177; 80053; 81001; 83690; 83735; 85007; 85025; 85652; 87493; 87798; 93005; 96374; 96375; 96376; 99285; G0378; J2405; Q9963; Q9967